=== PATIENT | female | born 1945 | race Native Hawaiian/Other Pacific Islander ===

== ENCOUNTER 2018-05-13 10:52 | Outpatient (CLI) | payer MEDICAID | END 2018-05-13 10:53 | disposition home or self-care (01) | LOC: RAD 10:52 ==

== ENCOUNTER 2018-05-19 09:25 | Outpatient (CLI) | payer MEDICAID | END 2018-05-19 09:26 | disposition home or self-care (01) | LOC: CARDIO 09:25 ==